=== PATIENT | female | born 1960 | race Hispanic/Latino ===

== ENCOUNTER 2017-08-01 03:22 | Emergency (ER) | payer BC ==
[2017-08-01 04:48] LABS: Hematocrit 43.8 % (30.3-42.9); Hemoglobin 14.6 gm/dl (10.1-14.3); Mean Corpuscular HGB Conc 33 % (30-34); Mean Corpuscular Hemoglobin 30 pg (28-32); Mean Corpuscular Volume 90 fl (79-97); Platelet Count 236 K/mm3 (140-440); Red Blood Count 4.87 M/mm3 (3.65-5.03); Red Cell Distribution Width 14.2 % (13.2-15.2); White Blood Count 15.3 K/mm3 (4.5-11.0)
[2017-08-01 04:59] LABS: Alanine Aminotransferase 23 units/L (7-56); Albumin 4.2 g/dL (3.9-5); Albumin/Globulin Ratio 1.3 %; Alkaline Phosphatase 63 units/L (35-129); BUN/Creatinine Ratio 40; Blood Urea Nitrogen 20 mg/dL (7-17); Calcium 8.6 mg/dL (8.4-10.2); Carbon Dioxide 26 mmol/L (22-30); Glucose 269 mg/dL (65-100); Lipase 72 units/L (13-60); Total Protein 7.5 g/dL (6.3-8.2)
[2017-08-01 05:00] LABS: Anion Gap 18 mmol/L; Chloride 100.4 mmol/L (98-107); Potassium 4.7 mmol/L (3.6-5.0); Sodium 140 mmol/L (137-145)
[2017-08-01 06:01] LABS: Bilirubin,Urine NEG (Negative); Blood,Urine NEG (Negative); Ketones,Urine TR mg/dL (Negative); Leukocyte Esterase,Urine NEG (Negative); Mucus,Urine FEW /HPF; Nitrite,Urine NEG (Negative); Protein,Urine <15 mg/dL mg/dL (Negative); Urobilinogen,Urine < 2.0 mg/dL (<2.0); WBC,Urine < 1.0 /HPF (0.0-6.0)
[2017-08-01 06:11] LABS: Basophils % (Manual) 0 % (0.0-1.8); Blastocytes % (Manual) 0 %
[2017-08-01 06:12] LABS: Anisocytosis 1+; Diff Status Complete
[2017-08-01] MEDS ORDERED: NACL 0.9% 1000 ML 1,000 ML IV ONE (12:14)
[2017-08-01] MEDS ORDERED: ZOFRAN IV ONE (12:14)
--- NOTE | 2017-08-01 12:20 | Emergency Department Report ---
HPI - General Chief Complaint: Abdominal Pain Time Seen by Provider: 08/01/17 12:04 - HPI HPI: This is a 57-year-old female presents to the emergency department, driven in by her son who is in the next room/bed, with complaint of a one-day history of nausea, vomiting and some abdominal cramping. She did not take anything for her symptoms as she does not have any medication for this and was not able to keep anything down. She has a past medical history of diabetes, hypertension and vertigo. Her primary care doctor is Debbie Melo. No recent travel. Her multiple members of her family, lives with her, who have similar symptoms, including the son who is next door. However he had the symptoms longer or they returned. There are no known aggravating or alleviating factors but the symptoms have improved slightly since this morning. ED Past Medical Hx - Past Medical History Previous Medical History?: Yes Hx Hypertension: Yes Hx Diabetes: Yes - Surgical History Past Surgical History?: Yes Hx Cholecystectomy: Yes Additional Surgical History: hysterectomy - Social History Smoking Status: Never Smoker - Medications Home Medications: Home Medications Medication Instructions Recorded Confirmed Last Taken Type Ondansetron [Zofran Odt] 4 mg PO Q8H PRN #10 tab.rapdis 08/01/17 Unknown Rx ED Review of Systems ROS: Stated complaint: ABD PAIN; N/V Other details as noted in HPI Comment: All other systems reviewed and negative Constitutional: denies: chills, fever Eyes: denies: eye pain, eye discharge, vision change ENT: denies: ear pain, throat pain Respiratory: denies: cough, shortness of breath, wheezing Cardiovascular: denies: chest pain, palpitations Gastrointestinal: abdominal pain, nausea, vomiting Genitourinary: denies: urgency, dysuria, discharge Musculoskeletal: denies: back pain, joint swelling, arthralgia Skin: denies: rash, lesions Neurological: denies: headache, weakness, paresthesias Physical Exam - Physical Exam Vital Signs: Vital Signs 08/01/17 08/01/17 08/01/17 03:49 11:04 11:15 Temperature 98.4 F Pulse Rate 100 H 99 H 92 H Respiratory 18 17 25 H Rate Blood Pressure 142/92 O2 Sat by Pulse 96 98 95 Oximetry 08/01/17 11:30 Temperature Pulse Rate 94 H Respiratory 26 H Rate Blood Pressure 141/90 O2 Sat by Pulse Oximetry Physical Exam: GENERAL: The patient is well-developed well-nourished. HENT: Normocephalic. Atraumatic. Patient has moist mucous membranes. EYES: Extraocular motions are intact. Pupils equal reactive to light bilaterally. NECK: Supple. Trachea is midline. CHEST/LUNGS: Clear to auscultation. There is no respiratory distress noted. HEART/CARDIOVASCULAR: Regular. There is no tachycardia. There is no gallop rub or murmur. ABDOMEN: Abdomen is soft, nontender. No guarding or rebound tenderness. Patient has normal bowel sounds. There is no abdominal distention. SKIN: Skin is warm and dry. NEURO: The patient is awake, alert, and oriented. The patient is cooperative. The patient has no focal neurologic deficits. The patient has normal speech. MUSCULOSKELETAL: There is no tenderness or deformity. There is no limitation range of motion. There is no evidence of acute injury. ED Course Vital Signs 08/01/17 08/01/17 08/01/17 03:49 11:04 11:15 Temperature 98.4 F Pulse Rate 100 H 99 H 92 H Respiratory 18 17 25 H Rate Blood Pressure 142/92 O2 Sat by Pulse 96 98 95 Oximetry 08/01/17 11:30 Temperature Pulse Rate 94 H Respiratory 26 H Rate Blood Pressure 141/90 O2 Sat by Pulse Oximetry ED Medical Decision Making - Lab Data Result diagrams: 08/01/17 03:55 08/01/17 03:55 - Radiology Data Radiology results: image reviewed interpreted by me: Abdominal x-ray showed some nonspecific nonobstructive bowel gas. - Medical Decision Making 57-year-old female presents with 24 hours of nausea, vomiting and some abdominal cramping. Labs are mostly unremarkable except for a mild leukocytosis. Normal belly labs including bilirubin, lipase and LFTs. Abdominal x-ray shows nonspecific nonobstructive bowel gas. No tenderness to palpation to the abdomen on physical examination. Vital signs stable throughout her ED course including being afebrile. She was given IV fluid, Zofran and eventually some Toradol. She was reevaluated multiple times of her multiple hours and is feeling improved. She was able to keep down fluid displaying the ability to orally rehydrate herself. She appears safe for discharge home at this time. She has good follow-up with primary care. She will go home with a Zofran prescription. She will return to the ER with any worsening of her symptoms or any acute distress. Discharge instructions given while in the apartment and all questions have been answered. - Differential Diagnosis gastroenteritis, food poisoning, bowel obstruction, diverticulitis, gastrit Critical Care Time: No Critical care attestation.: If time is entered above; I have spent that time in minutes in the direct care of this critically ill patient, excluding procedure time. ED Disposition Clinical Impression: Dehydration, Abdominal cramping Nausea & vomiting Qualifiers: Vomiting type: unspecified Vomiting Intractability: non-intractable Qualified Code(s): R11.2 - Nausea with vomiting, unspecified Disposition: TO HOME OR SELFCARE Is pt being admited?: No Condition: Stable Instructions: Dehydration (ED), Acute Nausea and Vomiting (ED), Abdominal Pain (ED) Additional Instructions: Please increase your oral rehydration. Return to the emergency Department with any worsening of your symptoms or any acute distress. Prescriptions: Ondansetron [Zofran Odt] 4 mg PO Q8H PRN #10 tab.rapdis PRN Reason: Nausea Referrals: DEBBIE MELO MD [Primary Care Provider] - 3-5 Days Forms: Work/School Release Form(ED) Time of Disposition: 16:09
--- NOTE | 2017-08-01 13:25 | XRay Report ---
ABDOMEN TWO VIEWS: 08/01/17 12:14:00 CLINICAL: Abdominal pain. COMPARISON:None. FINDINGS: Supine upright views demonstrate a normal bowel gas pattern. Right upper quadrant surgical clips. No distended bowel and no air-fluid levels. Left pelvic phlebolith. No mass or suspicious calcifications. No pneumoperitoneum. The bones and soft tissues are normal. IMPRESSION: Negative abdomen status post cholecystectomy.
[2017-08-01] MEDS ORDERED: TORADOL IV ONE (14:06)
[2017-08-01 14:49] VITALS: BP 128/85
== END 2017-08-01 17:00 | disposition home or self-care (01) ==
LOC: ED 03:22
DX: R10.9 Unspecified abdominal pain (principal); E86.0 Dehydration; R11.2 Nausea with vomiting, unspecified; I10 Essential (primary) hypertension; E11.9 Type 2 diabetes mellitus without complications
CPT/HCPCS: 36415; 74020; 80053; 81001; 82962; 83690; 85007; 85025; 96361; 96374; 96375; 99284; J1885; J2405; J7030

== ENCOUNTER 2017-10-10 22:19 | Emergency (ER) | payer OTHER, BC ==
[2017-10-10 22:36] VITALS: BP 148/92
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
== END 2017-10-11 01:50 | disposition home or self-care (01) ==
LOC: ED 22:19
DX: S46.812A Strain of other muscles, fascia and tendons at shoulder and upper arm level, left arm, initial encounter (principal); S46.811A Strain of other muscles, fascia and tendons at shoulder and upper arm level, right arm, initial encounter; M54.5 Low back pain; E11.9 Type 2 diabetes mellitus without complications; I10 Essential (primary) hypertension; Z88.5 Allergy status to narcotic agent; V43.52XA Car driver injured in collision with other type car in traffic accident, initial encounter; Y93.89 Activity, other specified; Y92.89 Other specified places as the place of occurrence of the external cause; Y99.8 Other external cause status
CPT/HCPCS: 99282

== ENCOUNTER 2018-11-30 11:29 | Inpatient (IN) | payer BC ==
--- NOTE | 2018-11-30 11:50 | Emergency Department Report ---
Blank Doc - Documentation Documentation: 58 y/o female with PMH of NIDDM and HTN presents to ed c/o of few hours of chest pain
--- NOTE | 2018-11-30 12:02 | XRay Report ---
ROUTINE CHEST, TWO VIEWS: HISTORY: chest pain. The trachea, heart, mediastinal contour, lung mor[place] and bony thorax are unremarkable. IMPRESSION: Unremarkable chest x-ray.
[2018-11-30 12:29] LABS: Basophils # (Auto) 0.1 K/mm3 (0.0-0.1); Basophils % (Auto) 0.8 % (0.0-1.8); Eosinophils # (Auto) 0.1 K/mm3 (0.0-0.4); Eosinophils % (Auto) 1.7 % (0.0-4.3); Hematocrit 41.1 % (30.3-42.9); Hemoglobin 13.7 gm/dl (10.1-14.3); Lymphocytes # (Auto) 1.7 K/mm3 (1.2-5.4); Lymphocytes % (Auto) 23.6 % (13.4-35.0); Mean Corpuscular HGB Conc 33 % (30-34); Mean Corpuscular Volume 88 fl (79-97); Monocytes # (Auto) 0.6 K/mm3 (0.0-0.8); Monocytes % (Auto) 7.8 % (0.0-7.3); Platelet Count 251 K/mm3 (140-440); Red Blood Count 4.66 M/mm3 (3.65-5.03); Red Cell Distribution Width 14.1 % (13.2-15.2)
[2018-11-30 12:55] LABS: Alanine Aminotransferase 23 units/L (7-56); Albumin 4.1 g/dL (3.9-5); BUN/Creatinine Ratio 33; Blood Urea Nitrogen 13 mg/dL (7-17); Calcium 8.7 mg/dL (8.4-10.2); Hemolysis Index 3
[2018-11-30] MEDS ORDERED: ASPIRIN PO ONE (14:29)
--- NOTE | 2018-11-30 14:32 | Emergency Department Report ---
ED Chest Pain HPI - General Chief Complaint: Chest Pain Stated Complaint: HYPERTENSION Time Seen by Provider: 11/30/18 11:46 Source: patient Mode of arrival: Ambulatory Limitations: No Limitations - History of Present Illness Initial Comments: Patient is a 58-year-old female past mental history of hypertension, elevated cholesterol, and diabetes who is presenting with chest discomfort. Patient states work today she was having some exertional chest pressure. Patient states there was no cough cold congestion or shortness of breath associated. Patient states with rest discomfort would subside. 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 Patient states she does take blood pressure medicines been compliant. Patient states a year ago she did have a stress test that was negative. Severity scale (0 -10): 3 - Related Data Previous Rx's Medication Instructions Recorded Last Taken Type Ondansetron [Zofran Odt] 4 mg PO Q8H PRN #10 tab.rapdis 08/01/17 Unknown Rx Cyclobenzaprine HCl [Flexeril 5 MG 5 mg PO TID PRN #20 tab 10/11/17 Unknown Rx TAB] Ibuprofen 800 mg PO Q6H PRN #30 tablet 10/11/17 Unknown Rx metFORMIN [Glucophage] 500 mg PO BID 30 Days #30 tablet 10/11/17 Unknown Rx Ibuprofen [Motrin] 600 mg PO Q8H PRN #20 tablet 07/26/18 Unknown Rx Ibuprofen [Motrin] 800 mg PO Q8HR PRN #12 tablet 09/12/18 Unknown Rx Allergies Allergy/AdvReac Type Severity Reaction Status Date / Time codeine Allergy Unknown Verified 11/30/18 11:31 Heart Score - HEART Score History: Highly suspicious EKG: Non-specific Age: 45-65 Risk factors: > 3 risk factors or hx of atherosclerotic disease Troponin: < normal limit HEART Score: 6 ED Review of Systems ROS: Stated complaint: HYPERTENSION Other details as noted in HPI Comment: All other systems reviewed and negative ED Past Medical Hx - Past Medical History Hx Hypertension: Yes Hx Diabetes: Yes Additional medical history: vertigo, Takes Breo for Post Nasal Drip - Surgical History Hx Cholecystectomy: Yes Additional Surgical History: hysterectomy - Social History Smoking Status: Never Smoker Substance Use Type: None - Medications Home Medications: Home Medications Medication Instructions Recorded Confirmed Last Taken Type Ondansetron [Zofran Odt] 4 mg PO Q8H PRN #10 tab.rapdis 08/01/17 Unknown Rx Cyclobenzaprine HCl [Flexeril 5 MG 5 mg PO TID PRN #20 tab 10/11/17 Unknown Rx TAB] Ibuprofen 800 mg PO Q6H PRN #30 tablet 10/11/17 Unknown Rx metFORMIN [Glucophage] 500 mg PO BID 30 Days #30 tablet 10/11/17 Unknown Rx Ibuprofen [Motrin] 600 mg PO Q8H PRN #20 tablet 07/26/18 Unknown Rx Ibuprofen [Motrin] 800 mg PO Q8HR PRN #12 tablet 09/12/18 Unknown Rx ED Physical Exam - General Limitations: No Limitations General appearance: alert, in no apparent distress - Head Head exam: Present: atraumatic, normocephalic - Eye Eye exam: Present: normal appearance - ENT ENT exam: Present: mucous membranes moist - Neck Neck exam: Present: normal inspection - Respiratory Respiratory exam: Present: normal lung sounds bilaterally. Absent: respiratory distress, wheezes, rales - Cardiovascular Cardiovascular Exam: Present: regular rate, normal rhythm, normal heart sounds. Absent: systolic murmur, diastolic murmur, rubs, gallop - GI/Abdominal GI/Abdominal exam: Present: soft, normal bowel sounds. Absent: distended, tenderness, guarding, rebound - Extremities Exam Extremities exam: Present: normal inspection - Back Exam Back exam: Present: normal inspection - Neurological Exam Neurological exam: Present: alert, oriented X3 - Psychiatric Psychiatric exam: Present: normal affect, normal mood - Skin Skin exam: Present: warm, dry, intact, normal color. Absent: rash ED Course Vital Signs 11/30/18 11:34 Pulse Rate 90 Respiratory 18 Rate Blood Pressure 148/92 O2 Sat by Pulse 96 Oximetry COREY score - Corey Score Age > 65: (0) No Aspirin use within the Past 7 Days: (0) No 3 or more CAD Risk Factors: (1) Yes 2 or more Angina events in past 24 hrs: (1) Yes Known CAD with more than 50% Stenosis: (0) No Elevated Cardiac Markers: (0) No ST Deviation Greater than 0.5mm: (0) No COREY Score: 2 ED Medical Decision Making - Lab Data Result diagrams: 11/30/18 12:21 11/30/18 12:21 Lab Results 11/30/18 11/30/18 Range/Units 12:21 12:21 WBC 7.1 (4.5-11.0) K/mm3 RBC 4.66 (3.65-5.03) M/mm3 Hgb 13.7 (10.1-14.3) gm/dl Hct 41.1 (30.3-42.9) % MCV 88 (79-97) fl MCH 30 (28-32) pg MCHC 33 (30-34) % RDW 14.1 (13.2-15.2) % Plt Count 251 (140-440) K/mm3 Lymph % (Auto) 23.6 (13.4-35.0) % [place] % (Auto) 7.8 H (0.0-7.3) % Eos % (Auto) 1.7 (0.0-4.3) % Baso % (Auto) 0.8 (0.0-1.8) % Lymph # 1.7 (1.2-5.4) K/mm3 [place] # 0.6 (0.0-0.8) K/mm3 Eos # 0.1 (0.0-0.4) K/mm3 Baso # 0.1 (0.0-0.1) K/mm3 Seg Neutrophils % 66.1 (40.0-70.0) % Seg Neutrophils # 4.7 (1.8-7.7) K/mm3 Sodium 143 (137-145) mmol/L Potassium 3.8 (3.6-5.0) mmol/L Chloride 102.1 (98-107) mmol/L Carbon Dioxide 26 (22-30) mmol/L Anion Gap 19 mmol/L BUN 13 (7-17) mg/dL Creatinine 0.4 L (0.7-1.2) mg/dL Estimated GFR > 60 ml/min BUN/Creatinine Ratio 33 % Glucose 118 H (65-100) mg/dL Calcium 8.7 (8.4-10.2) mg/dL Total Bilirubin 0.40 (0.1-1.2) mg/dL AST 18 (5-40) units/L ALT 23 (7-56) units/L Alkaline Phosphatase 57 (35-129) units/L Troponin T < 0.010 (0.00-0.029) ng/mL Total Protein 6.9 (6.3-8.2) g/dL Albumin 4.1 (3.9-5) g/dL Albumin/Globulin Ratio 1.5 % Lipase 166 H (13-60) units/L - EKG Data -: EKG Interpreted by Me EKG shows normal: sinus rhythm, axis, intervals, QRS complexes, ST-T waves Rate: normal - EKG Data Interpretation: normal EKG - Radiology Data Radiology results: report reviewed (CXR WNL) - Medical Decision Making Patient is a 4-year-old female presenting with exertional chest discomfort and slightly elevated blood pressure. Patient's heart scores 6 and she does make me criteria for admission. Patient will be admitted to the hospitalist service under Dr. Temple Critical Care Time: Yes (30) Critical care attestation.: If time is entered above; I have spent that time in minutes in the direct care of this critically ill patient, excluding procedure time. ED Disposition Clinical Impression: Angina pectoris Disposition: 09 OP ADMIT IP TO THIS HOSP Is pt being admited?: Yes Does the pt Need Aspirin: No Condition: Stable Instructions: Angina (ED) Referrals: LUKE GASPAR MD [Primary Care Provider] - 3-5 Days Time of Disposition: 14:32
--- NOTE | 2018-11-30 16:42 | History and Physical Report ---
History of Present Illness Date of examination: 11/30/18 Date of admission: 11/30/18 14:33 Chief complaint: Chest pain since 1 day duration History of present illness: 58-year-old female with hypertension type 2 diabetes and muscle spasms and elevated cholesterol comes in for chest discomfort since a.m. 6 chest discomfort also associated with exertion. Chest pain is left-sided not radiating. Associated with exertion. No diaphoresis no shortness of breath. Chest pain is about 5 on a scale of 1-10. No recent travel. No exacerbating or relieving factors. No fever or chills. Patient also states that her blood pressure was high at work. Past Medical History Hypertension: Yes Diabetes: Yes Vertigo Asthma/COPD Vitamin D deficiency Surgical History Cholecystectomy: Yes Additional Surgical History: hysterectomy Tubal ligation Social History Smoking Status: Never Smoker Substance Use Type: None Family history hypertension Medications Home Medications: Home Medications Medication Instructions Recorded Confirmed Last Taken Type Ondansetron [Zofran Odt] 4 mg PO Q8H PRN #10 tab.rapdis 08/01/17 Unknown Rx Cyclobenzaprine HCl [Flexeril 5 MG 5 mg PO TID PRN #20 tab 10/11/17 Unknown Rx TAB] Ibuprofen 800 mg PO Q6H PRN #30 tablet 10/11/17 Unknown Rx metFORMIN [Glucophage] 500 mg PO BID 30 Days #30 tablet 10/11/17 Unknown Rx Ibuprofen [Motrin] 600 mg PO Q8H PRN #20 tablet 07/26/18 Unknown Rx Ibuprofen [Motrin] 800 mg PO Q8HR PRN #12 tablet 09/12/18 Unknown Rx Medications and Allergies Allergies Allergy/AdvReac Type Severity Reaction Status Date / Time codeine Allergy Unknown Verified 11/30/18 11:31 Home Medications Medication Instructions Recorded Confirmed Last Taken Type Ergocalciferol [Vitamin D2] 1 cap PO QWEEK 11/30/18 11/30/18 11/24/18 History Ferrous Sulfate [Iron] 325 mg PO DAILY 11/30/18 11/30/18 11/30/18 History Fluticasone [Flonase] 1 spray NS QDAY 11/30/18 11/30/18 11/30/18 History Fluticasone/Vilanterol [Breo 1 each IH DAILY 11/30/18 11/30/18 11/30/18 History Ellipta 100-25 Mcg INH] Losartan [Cozaar] 50 mg PO QDAY 11/30/18 11/30/18 11/30/18 History Sitagliptin Phosphate [Januvia] 50 mg PO DAILY 11/30/18 11/30/18 11/30/18 History amLODIPine [Norvasc] 5 mg PO DAILY 11/30/18 11/30/18 11/30/18 History metFORMIN [Glucophage] 500 mg PO TID 11/30/18 11/30/18 11/30/18 History Review of Systems All systems: negative Constitutional: no weight loss, no weight gain, no fever, no chills, no sweats, no night sweats, no anorexia, no fatigue, no weakness Ears, nose, mouth and throat: no sinus pressure, no sinus pain, no sore throat, no swelling in mouth Breasts: no deferred Cardiovascular: chest pain, no orthopnea, no palpitations, no rapid/irregular heart beat, no edema, no syncope, no lightheadedness, no shortness of breath, no dyspnea on exertion Respiratory: cough, no cough with sputum, no excessive sputum, no hemoptysis, no shortness of breath, no dyspnea on exertion Gastrointestinal: no abdominal pain, no nausea, no vomiting, no diarrhea, no constipation Musculoskeletal: no neck stiffness, no neck pain, no shooting arm pain, no arm numbness/tingling Integumentary: no rash, no pruritis, no redness, no sores, no wounds Neurological: no head injury, no transient paralysis, no paralysis, no weakness, no parathesias, no numbness Psychiatric: no anxiety, no memory loss, no change in sleep habits, no sleep disturbances, no insomnia, no hypersomnia Endocrine: no cold intolerance, no heat intolerance, no polyphagia, no excessive thirst Hematologic/Lymphatic: no easy bruising, no easy bleeding Allergic/Immunologic: no urticaria, no allergic rhinitis, no wheezing Exam - Constitutional Vitals: Temp Pulse Resp BP Pulse Ox 90 18 148/92 96 11/30/18 11:34 11/30/18 11:34 11/30/18 11:34 11/30/18 11:34 General appearance: Present: no acute distress, well-nourished - EENT Eyes: Present: PERRL ENT: hearing intact, clear oral mucosa - Neck Neck: Present: supple, normal ROM - Respiratory Respiratory effort: normal Respiratory: bilateral: CTA - Cardiovascular Heart rate: 89 Rhythm: regular Heart Sounds: Present: S1 & S2. Absent: rub, click - Extremities Extremities: no ischemia, pulses intact, pulses symmetrical, No edema Peripheral Pulses: within normal limits - Abdominal General gastrointestinal: Present: soft, non-tender, non-distended, normal bowel sounds Female genitourinary: Present: normal - Rectal Rectal Exam: deferred - Integumentary Integumentary: Present: clear, warm, dry - Musculoskeletal Musculoskeletal: gait normal, strength equal bilaterally - Psychiatric Psychiatric: appropriate mood/affect, intact judgment & insight - Neurologic Neurologic: CNII-XII intact, moves all extremities - Allied Health Allied health notes reviewed: nursing, case management Results - Labs CBC & Chem 7: 11/30/18 12:21 11/30/18 12:21 Labs: Laboratory Last Values WBC 7.1 K/mm3 (4.5-11.0) 11/30/18 12:21 RBC 4.66 M/mm3 (3.65-5.03) 11/30/18 12:21 Hgb 13.7 gm/dl (10.1-14.3) 11/30/18 12:21 Hct 41.1 % (30.3-42.9) 11/30/18 12:21 MCV 88 fl (79-97) 11/30/18 12:21 MCH 30 pg (28-32) 11/30/18 12:21 MCHC 33 % (30-34) 11/30/18 12:21 RDW 14.1 % (13.2-15.2) 11/30/18 12:21 Plt Count 251 K/mm3 (140-440) 11/30/18 12:21 Lymph % (Auto) 23.6 % (13.4-35.0) 11/30/18 12:21 Maries % (Auto) 7.8 % (0.0-7.3) H 11/30/18 12:21 Eos % (Auto) 1.7 % (0.0-4.3) 11/30/18 12:21 Baso % (Auto) 0.8 % (0.0-1.8) 11/30/18 12:21 Lymph # 1.7 K/mm3 (1.2-5.4) 11/30/18 12:21 Maries # 0.6 K/mm3 (0.0-0.8) 11/30/18 12:21 Eos # 0.1 K/mm3 (0.0-0.4) 11/30/18 12:21 Baso # 0.1 K/mm3 (0.0-0.1) 11/30/18 12:21 Seg Neutrophils % 66.1 % (40.0-70.0) 11/30/18 12:21 Seg Neutrophils # 4.7 K/mm3 (1.8-7.7) 11/30/18 12:21 Sodium 143 mmol/L (137-145) 11/30/18 12:21 Potassium 3.8 mmol/L (3.6-5.0) 11/30/18 12:21 Chloride 102.1 mmol/L (98-107) 11/30/18 12:21 Carbon Dioxide 26 mmol/L (22-30) 11/30/18 12:21 Anion Gap 19 mmol/L 11/30/18 12:21 BUN 13 mg/dL (7-17) 11/30/18 12:21 Creatinine 0.4 mg/dL (0.7-1.2) L 11/30/18 12:21 Estimated GFR > 60 ml/min 11/30/18 12:21 BUN/Creatinine Ratio 33 % 11/30/18 12:21 Glucose 118 mg/dL (65-100) H 11/30/18 12:21 Calcium 8.7 mg/dL (8.4-10.2) 11/30/18 12:21 Total Bilirubin 0.40 mg/dL (0.1-1.2) 11/30/18 12:21 AST 18 units/L (5-40) 11/30/18 12:21 ALT 23 units/L (7-56) 11/30/18 12:21 Alkaline Phosphatase 57 units/L (35-129) 11/30/18 12:21 Troponin T < 0.010 ng/mL (0.00-0.029) 11/30/18 12:21 Total Protein 6.9 g/dL (6.3-8.2) 11/30/18 12:21 Albumin 4.1 g/dL (3.9-5) 11/30/18 12:21 Albumin/Globulin Ratio 1.5 % 11/30/18 12:21 Lipase 166 units/L (13-60) H 11/30/18 12:21 Short CBC 11/30/18 Range/Units 12:21 WBC 7.1 (4.5-11.0) K/mm3 Hgb 13.7 (10.1-14.3) gm/dl Hct 41.1 (30.3-42.9) % Plt Count 251 (140-440) K/mm3 BMP 11/30/18 12:21 Sodium 143 Potassium 3.8 Chloride 102.1 Carbon Dioxide 26 BUN 13 Creatinine 0.4 L Glucose 118 H Calcium 8.7 Cardiac Enzymes 11/30/18 Range/Units 12:21 Troponin T < 0.010 (0.00-0.029) ng/mL Liver Function 11/30/18 Range/Units 12:21 Total Bilirubin 0.40 (0.1-1.2) mg/dL AST 18 (5-40) units/L ALT 23 (7-56) units/L Alkaline Phosphatase 57 (35-129) units/L Albumin 4.1 (3.9-5) g/dL - Imaging and Cardiology EKG: report reviewed (normal sinus rhythm heart rate of 89/m no acute ST-T wave changes) Assessment and Plan Advance Directives: Yes (full code) VTE prophylaxis?: Chemical Plan of care discussed with patient/family: Yes - Patient Problems (1) Chest pain Current Visit: Yes Status: Acute Qualifiers: Chest pain type: unspecified Qualified Code(s): R07.9 - Chest pain, unspecified Plan to address problem: Chest pain rule out RI protocol Serial troponins Patient willing to do treadmill stress tests-hence ordered a treadmill stress test Costochondritis and GERD in the differential diagnosis (2) Uncontrolled hypertension Current Visit: Yes Status: Chronic Plan to address problem: Criteria: Antihypertensives and add a different class of antihypertensive if necessary (3) Type 2 diabetes mellitus Current Visit: Yes Status: Chronic Qualifiers: Diabetes mellitus terminal make up operator insulin use: without terminal make up operator use Plan to address problem: Continue metformin and Januvia and also coverage with insulin. Check hemoglobin A1c and adjust medications if necessary (4) Vitamin D deficiency Current Visit: Yes Status: Chronic Plan to address problem: Continue vitamin D as per schedule (5) Hyperlipidemia Current Visit: Yes Status: Chronic Qualifiers: Hyperlipidemia type: mixed hyperlipidemia Qualified Code(s): E78.2 - Mixed hyperlipidemia Plan to address problem: Continue statins (6) Asthma-COPD overlap syndrome Current Visit: Yes Status: Chronic Plan to address problem: Continue Breo (7) DVT prophylaxis Current Visit: Yes Status: Acute Plan to address problem: On Lovenox and GI prophylaxis
[2018-11-30] MEDS ORDERED: DILAUDID IV PRN (16:43)
[2018-11-30] MEDS ORDERED: TYLENOL PO PRN (16:43)
[2018-11-30] MEDS ORDERED: SODIUM CHLORIDE FLUSH SYRINGE 10 ML IV PRN (16:43)
[2018-11-30] MEDS ORDERED: ZOFRAN IV PRN (16:43)
[2018-11-30] MEDS ORDERED: PERCOCET 5/325 PO PRN (16:43)
[2018-11-30] MEDS ORDERED: NON-FORMULARY (Sitagliptin Phosphate [Januvia] 50 MG) PO SCH (16:45)
[2018-11-30] MEDS ORDERED: NON-FORMULARY (Fluticasone/Vilanterol [Breo Ellipta 100-25 Mcg Inh] 1 EACH) IH SCH (16:45)
[2018-11-30] MEDS ORDERED: NORVASC PO SCH (18:00)
[2018-11-30] MEDS ORDERED: COZAAR PO SCH (18:00)
[2018-11-30] MEDS ORDERED: FEOSOL PO SCH (18:00)
[2018-11-30] MEDS ORDERED: FLONASE NS SCH (18:00)
[2018-11-30] MEDS: PEPCID PO SCH (21:47)
[2018-11-30] MEDS: SODIUM CHLORIDE FLUSH SYRINGE 10 ML IV SCH (21:47)
[2018-11-30] MEDS: GLUCOPHAGE PO SCH (21:47)
[2018-11-30] MEDS: HumaLOG SUB-Q SCH (21:51)
[2018-11-30] MEDS ORDERED: LOVENOX SUB-Q SCH (22:00)
[2018-11-30] MEDS: BROVANA NEBU IH SCH (22:12)
[2018-11-30] MEDS: PULMICORT IH SCH (22:12)
[2018-12-01] MEDS: HumaLOG SUB-Q SCH ×2 (08:00→15:36)
[2018-12-01] MEDS: BROVANA NEBU IH SCH (08:31)
[2018-12-01] MEDS: PULMICORT IH SCH (08:31)
[2018-12-01] MEDS: GLUCOPHAGE PO SCH ×2 (09:30→15:35)
[2018-12-01] MEDS ORDERED: TRADJENTA PO SCH (10:00)
[2018-12-01] MEDS: PEPCID PO SCH (10:04)
[2018-12-01] MEDS: SODIUM CHLORIDE FLUSH SYRINGE 10 ML IV SCH (10:12)
[2018-12-01] MEDS ORDERED: NORVASC PO ONE (14:27)
--- NOTE | 2018-12-01 15:15 | Discharge Summary ---
Providers - Providers Date of Admission: 11/30/18 14:33 Date of discharge: 12/01/18 Attending physician: LAM RIVERS Primary care physician: JESSA SINCLAIR Hospitalization Condition: Fair Hospital course: Patient is 58 yo with hypertension, hyperlipidemia, type 2 diabetes and muscle spasms. She presented with chest discomfort for hours. Chest pain is left-sided not radiating. Chest discomfort associated with exertion. No diaphoresis no shortness of breath. She was given Aspirin,admitted. Stress test was done next day, was negtive for ischemia. Chest pain determined to be due to GERD. She was then discharged home. Total time spent on discharge, 33 mins Disposition: - TO HOME OR SELFCARE - Discharge Diagnoses (1) Chest pain Status: Acute Qualifiers: Chest pain type: unspecified Qualified Code(s): R07.9 - Chest pain, unspecified (2) Hyperlipidemia Status: Chronic Qualifiers: Hyperlipidemia type: mixed hyperlipidemia Qualified Code(s): E78.2 - Mixed hyperlipidemia (3) Type 2 diabetes mellitus Status: Chronic Qualifiers: Diabetes mellitus longterm insulin use: without longterm use (4) Uncontrolled hypertension Status: Chronic (5) GERD (gastroesophageal reflux disease) Status: Acute Core Measure Documentation - Palliative Care Palliative Care/ Comfort Measures: Not Applicable - Core Measures Any of the following diagnoses?: none Exam - Constitutional Vitals: Temp Pulse Resp BP Pulse Ox 98.3 F 96 H 18 149/95 98 12/01/18 11:55 12/01/18 11:54 12/01/18 11:54 12/01/18 11:54 12/01/18 11:54 Plan Activity: advance as tolerated Diet: low fat, low cholesterol, low salt Additional Instructions: 1.Follow up with Dr. Jessa Sinclair, PCP in 1 week. Forms: Work/School Release Form Prescriptions: amLODIPine [Norvasc] 10 mg PO DAILY #30 tablet Famotidine [Pepcid] 20 mg PO BID #30 tablet
[2018-12-01 15:39] VITALS: BP 149/90
--- NOTE | 2018-12-02 00:08 | Treadmill Report ---
ORDERING PHYSICIAN: Erika Temple MD INDICATION: Chest pain. FINDINGS: After obtaining the written consent, the patient underwent a stress test per Ricardo protocol. The patient's baseline heart rate was 78 beats per minute with a baseline blood pressure of 139/92. Baseline EKG shows normal sinus rhythm. The patient exercised for 8 minutes and 50 seconds achieving 136 beats per minute heart rate, which is 85% of the maximal age predicted heart rate. The maximum measured blood pressure was 175/95. No ischemic EKG changes were recorded. No limiting chest pain or shortness of breath reported. IMPRESSION: Normal treadmill stress test with no evidence of limiting chest pain or shortness of breath as well as no evidence of ischemic EKG changes and appropriate blood pressure and heart rate response. JOB# [id number] TELLY/EULA
[2018-12-02] MEDS ORDERED: NORVASC PO SCH ×2 (10:00)
== END 2018-12-01 18:56 | disposition home or self-care (01) | DRG 392 ==
LOC: ED 11:29 → 4A 14:33
PROVIDERS: ADMIT Internal Medicine; ATTEND Internal Medicine
DX: K21.9 Gastro-esophageal reflux disease without esophagitis (principal); M35.1 Other overlap syndromes; R07.9 Chest pain, unspecified; I20.9 Angina pectoris, unspecified; I10 Essential (primary) hypertension; E11.9 Type 2 diabetes mellitus without complications; M62.838 Other muscle spasm; J44.9 Chronic obstructive pulmonary disease, unspecified; E55.9 Vitamin D deficiency, unspecified; E78.2 Mixed hyperlipidemia; Z90.49 Acquired absence of other specified parts of digestive tract; Z90.710 Acquired absence of both cervix and uterus; Z98.51 Tubal ligation status; Z82.49 Family history of ischemic heart disease and other diseases of the circulatory system; Z79.899 Other long term (current) drug therapy; Z88.5 Allergy status to narcotic agent
CPT/HCPCS: 36415; 71046; 80053; 82962; 83036; 83690; 84484; 85025; 93005; 93010; 93017; 94640; G0378; J1650

== ENCOUNTER 2022-05-30 07:17 | Emergency (ER) | payer BC ==
[2022-05-30] MEDS ORDERED: MECLIZINE 25 MG TAB PO ONE (10:17)
--- NOTE | 2022-05-30 10:36 | XRay Report ---
CHEST 2 VIEWS INDICATION / CLINICAL INFORMATION: dizziness. COMPARISON: Chest radiographs 11/30/2018 FINDINGS: SUPPORT DEVICES: None. HEART / MEDIASTINUM: No significant abnormality. LUNGS / PLEURA: No significant pulmonary or pleural abnormality. No pneumothorax. ADDITIONAL FINDINGS: Right upper quadrant cholecystectomy clips are seen. IMPRESSION: 1. No acute findings. Signer Name: Avinash Quintanilla MD Signed: 05/30/2022 10:32 AM Workstation Name: [id number]
[2022-05-30 10:56] LABS: Hematocrit 42.6 % (30.3-42.9); Mean Corpuscular HGB Conc 33 % (30-34); Mean Corpuscular Volume 89 fl (79-97); Platelet Count 207 K/mm3 (140-440); Red Blood Count 4.81 M/mm3 (3.65-5.03); Red Cell Distribution Width 14.3 % (13.2-15.2)
--- NOTE | 2022-05-30 11:03 | Cat Scan Report ---
CT head/brain wo con INDICATION / CLINICAL INFORMATION: 62 years Female; dizziness. TECHNIQUE: Routine CT head without contrast. All CT scans at this location are performed using CT dos e reduction for ALARA by means of automated exposure control. COMPARISON: The study is compared with previous CT of 07/26/2018. FINDINGS: BRAIN / INTRACRANIAL CONTENTS: There are not ill-defined foci of relative decreased attenuation invol ving the ganglia capsular regions and right frontal subcortical white matter. The findings appear to correlate with the previous CT and most consistent with microvascular angiopathy. The ventricular sys tem remains appropriate in size and configuration. There is no CT evidence of acute intracranial hemo rrhage or significant mass effect. ORBITS: No significant abnormality of visualized orbits. SINUSES / MASTOIDS: No significant abnormality in the visualized paranasal sinuses or mastoid air yo ls. CRANIOCERVICAL JUNCTION: No significant abnormality. ADDITIONAL FINDINGS: None. IMPRESSION: 1. There is continued microvascular angiopathy as described without CT evidence of acute intracranial hemorrhage or significant overall change from 07/26/2018. Signer Name: Prince Saucedo MD Signed: 05/30/2022 10:59 AM Workstation Name: [id number]
[2022-05-30 11:20] LABS: Alanine Aminotransferase 16 units/L (7-56); Albumin 4.3 g/dL (3.9-5); Blood Urea Nitrogen 13 mg/dL (7-17); Calcium 8.9 mg/dL (8.4-10.2); Hemolysis Index 9
[2022-05-30 11:21] LABS: BUN/Creatinine Ratio 26
[2022-05-30 12:29] LABS: Color,Urine Straw (Yellow)
[2022-05-30 12:41] LABS: Bacteria,Urine 2+ /HPF (Negative); RBC,Urine < 1.0 /HPF (0.0-6.0); WBC,Urine < 1.0 /HPF (0.0-6.0)
--- NOTE | 2022-05-30 13:27 | Emergency Department Report ---
ED Dizziness HPI - General Chief Complaint: Dizziness Stated Complaint: dizzness, headache, weak legs Time Seen by Provider: 05/30/22 09:58 Source: patient Mode of arrival: Ambulatory Limitations: No Limitations - History of Present Illness Initial Comments: 62-year-old white female with a past medical history of hypertension, diabetes, and vertigo presents to the emergency department for evaluation of dizziness. She states that despite the fact that she has a history of vertigo, she has not had any problems with dizziness in several years until 2 days ago. She states that 2 days ago she had severe dizziness, lightheadedness that was followed by severe headache. She states that since then she has had persistent dizziness that is better when she lies down. She denies unilateral weakness, changes in mentation, changes in speech, fever, nausea, vomiting, chest pain, and diaphoresis. She states that she has not taken any medications for her symptoms. MD Complaint: dizziness, lightheadedness -: Gradual, days(s) (2) Timing: awoke with symptoms Description: lightheadedness History of Same: Yes History of Trauma: No Severity: moderate Worsens With: position Associated Symptoms: denies: ataxia, chest pain, confusion, cough, diaphoresis, fever/chills, loss of appetite, malaise, rash, seizure, shortness of breath, syncope, weakness - Related Data Home Medications Medication Instructions Recorded Confirmed Last Taken Ergocalciferol [Vitamin D2] 1 cap PO QWEEK 11/30/18 11/30/18 11/24/18 Ferrous Sulfate [Iron 325 MG] 325 mg PO DAILY 11/30/18 11/30/18 11/30/18 Fluticasone [Flonase] 1 spray NS QDAY 11/30/18 11/30/18 11/30/18 Fluticasone/Vilanterol [Breo 1 each IH DAILY 11/30/18 11/30/18 11/30/18 Ellipta 100-25 Mcg INH] Losartan [Cozaar] 50 mg PO QDAY 11/30/18 11/30/18 11/30/18 Sitagliptin Phosphate [Januvia] 50 mg PO DAILY 11/30/18 11/30/18 11/30/18 metFORMIN [Glucophage] 500 mg PO TID 11/30/18 11/30/18 11/30/18 Previous Rx's Medication Instructions Recorded Last Taken Type Famotidine [Pepcid] 20 mg PO BID #30 tablet 12/01/18 Unknown Rx amLODIPine 10 mg PO DAILY #30 tablet 12/01/18 Unknown Rx Meclizine [Antivert] 25 mg PO TID PRN #30 tab 05/30/22 Unknown Rx Allergies Allergy/AdvReac Type Severity Reaction Status Date / Time codeine Allergy Unknown Verified 05/30/22 08:07 ED Review of Systems ROS: Stated complaint: dizzness, headache, weak legs Other details as noted in HPI Comment: All other systems reviewed and negative Constitutional: denies: chills, fever Eyes: denies: vision change ENT: denies: congestion Respiratory: denies: shortness of breath Cardiovascular: denies: chest pain, palpitations Gastrointestinal: denies: abdominal pain, nausea, vomiting Genitourinary: denies: urgency, dysuria Musculoskeletal: denies: back pain Skin: denies: rash, lesions Neurological: headache, vertigo. denies: weakness, numbness, paresthesias, confusion, abnormal gait Psychiatric: denies: anxiety ED Past Medical Hx - Past Medical History Hx Hypertension: Yes Hx Diabetes: Yes Additional medical history: vertigo, Takes Breo for Post Nasal Drip - Surgical History Hx Cholecystectomy: Yes Additional Surgical History: hysterectomy - Social History Smoking Status: Never Smoker Substance Use Type: None - Medications Home Medications: Home Medications Medication Instructions Recorded Confirmed Last Taken Type Ergocalciferol [Vitamin D2] 1 cap PO QWEEK 11/30/18 11/30/18 11/24/18 History Ferrous Sulfate [Iron 325 MG] 325 mg PO DAILY 11/30/18 11/30/18 11/30/18 History Fluticasone [Flonase] 1 spray NS QDAY 11/30/18 11/30/18 11/30/18 History Fluticasone/Vilanterol [Breo 1 each IH DAILY 11/30/18 11/30/18 11/30/18 History Ellipta 100-25 Mcg INH] Losartan [Cozaar] 50 mg PO QDAY 11/30/18 11/30/18 11/30/18 History Sitagliptin Phosphate [Januvia] 50 mg PO DAILY 11/30/18 11/30/18 11/30/18 History metFORMIN [Glucophage] 500 mg PO TID 11/30/18 11/30/18 11/30/18 History Famotidine [Pepcid] 20 mg PO BID #30 tablet 12/01/18 Unknown Rx amLODIPine 10 mg PO DAILY #30 tablet 12/01/18 Unknown Rx Meclizine [Antivert] 25 mg PO TID PRN #30 tab 05/30/22 Unknown Rx ED Physical Exam - General Limitations: No Limitations General appearance: alert, in no apparent distress - Head Head exam: Present: atraumatic, normocephalic - Eye Eye exam: Present: normal appearance. Absent: scleral icterus, conjunctival injection, periorbital swelling, periorbital tenderness - ENT ENT exam: Present: normal exam, normal orophraynx - Neck Neck exam: Present: normal inspection, full ROM. Absent: tenderness, meningismus, lymphadenopathy - Respiratory Respiratory exam: Present: normal lung sounds bilaterally. Absent: respiratory distress, wheezes, rales, rhonchi, stridor, chest wall tenderness - Cardiovascular Cardiovascular Exam: Present: regular rate, normal heart sounds - GI/Abdominal GI/Abdominal exam: Present: soft, normal bowel sounds. Absent: distended, tenderness, guarding, rebound, rigid - Extremities Exam Extremities exam: Present: normal inspection, normal capillary refill. Absent: full ROM, pedal edema, joint swelling, calf tenderness - Back Exam Back exam: Present: normal inspection. Absent: CVA tenderness (R), CVA tenderness (L), vertebral tenderness - Neurological Exam Neurological exam: Present: alert, oriented X3, CN II-XII intact, normal gait, reflexes normal. Absent: motor sensory deficit - Expanded Neurological Exam Expanded Patient oriented to: Present: person, place Speech: Present: fluid speech Cranial nerves: EOM's Intact: Normal, Gag Reflex: Normal, Tongue Deviation: Normal, Nystagmus: Normal, Facial Sensation: Normal Cerebellar function: Finger to Nose: Normal, Heel to Lubin: Normal, Romberg: Normal Sensory exam: Upper Extremity Light Touch: Normal, Upper Extremity Temperature: Normal, Lower Extremity Light Touch: Normal, Lower Extremity Temperature: Normal Motor strength exam: RUE: 5, LUE: 5, RLE: 5, LLE: 5 Best Eye Response ([place]): (4) open spontaneously Best Motor Response ([place]): (6) obeys commands Best Verbal Response ([place]): (5) oriented [place] Total: 15 - Psychiatric Psychiatric exam: Present: normal affect, normal mood - Skin Skin exam: Present: warm, dry, intact, normal color ED Course Vital Signs 05/30/22 05/30/22 08:05 14:27 Temperature 97.9 F 98.8 F Pulse Rate 87 88 Respiratory 19 18 Rate Blood Pressure 144/78 124/79 [Left] O2 Sat by Pulse 97 96 Oximetry - Reevaluation(s) Reevaluation #1: 05/30/22 13:27 Dizziness resolved and patient states that she feels much better. ED Medical Decision Making - Lab Data Result diagrams: 05/30/22 10:48 05/30/22 10:48 - EKG Data Interpretation: no acute changes, normal EKG - Radiology Data Radiology results: report reviewed, image reviewed - Medical Decision Making 62-year-old white female with a past medical history of hypertension, diabetes, and vertigo presents to the emergency department for evaluation of dizziness. She states that despite the fact that she has a history of vertigo, she has not had any problems with dizziness in several years until 2 days ago. She states that 2 days ago she had severe dizziness, lightheadedness that was followed by severe headache. She states that since then she has had persistent dizziness that is better when she lies down. She denies unilateral weakness, changes in mentation, changes in speech, fever, nausea, vomiting, chest pain, and diaphoresis. She states that she has not taken any medications for her symptoms. Physical exam unremarkable. Work-up including EKG, CT scan, CBC CMP, troponin, EKG, and UA unremarkable. Symptoms totally resolved after medication. Patient will be discharged home with Antivert and advised to follow-up with her primary care provider if worsening symptoms and return to the emergency department as needed. She verbalizes understanding of and agreement with plan of care. Critical care attestation.: If time is entered above; I have spent that time in minutes in the direct care of this critically ill patient, excluding procedure time. ED Disposition Clinical Impression: Dizziness Disposition: 01 HOME / SELF CARE / HOMELESS Is pt being admited?: No Does the pt Need Aspirin: No Condition: Stable Instructions: Dizziness, [id number] Additional Instructions: Take medications as prescribed. Follow-up with your primary care provider if worsening symptoms. Return to the emergency department as needed. Prescriptions: Meclizine [Antivert] 25 mg PO TID PRN #30 tab PRN Reason: Vertigo Referrals: PRIMARY CARE, [Primary Care Provider] - 3-5 Days Forms: Work/School Release Form(ED) Time of Disposition: 14:16
[2022-05-30 14:28] VITALS: BP 124/79
--- NOTE | 2022-06-03 09:39 | Electrocardiograph Report ---
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
== END 2022-05-30 14:28 | disposition home or self-care (01) ==
LOC: ED 07:17
DX: R42 Dizziness and giddiness (principal); I10 Essential (primary) hypertension; E11.9 Type 2 diabetes mellitus without complications; Z90.49 Acquired absence of other specified parts of digestive tract; Z91.09 Other allergy status, other than to drugs and biological substances
CPT/HCPCS: 36415; 70450; 71046; 80053; 81001; 84484; 85027; 93005; 99284